=== PATIENT | female | born 1980 | race Caucasian/White ===

== ENCOUNTER 2018-02-04 21:22 | Emergency (ER) | payer OTHER ==
[2018-02-04 21:39] VITALS: BP 111/73
--- NOTE | 2018-02-04 21:48 | UC ---
Eye Complaint HPI - HPI Summary HPI Summary: 37 yo female with right eye redness x 1 week no d/c mild irritation no visual complaints no photophobia - History of Current Complaint Chief Complaint: UCEye Stated Complaint: EYE COMPLAINT Time Seen by Provider: 02/04/18 21:42 Hx Obtained From: Patient Hx Last Menstrual Period: 01/30/18 Onset/Duration: Gradual Onset, Lasting Days Timing: Constant Severity Initially: Mild Severity Currently: Mild Pain Intensity: 0 Pain Scale Used: 0-10 Numeric Aggravating Factor(s): Nothing Alleviating Factor(s): Nothing Associated Signs And Symptoms: Positive: Negative Eyes: 1 - medial redness only - Allergies/Home Medications Allergies/Adverse Reactions: Allergies Allergy/AdvReac Type Severity Reaction Status Date / Time No Known Allergies Allergy Verified 02/04/18 21:39 Home Medications: Home Medications NK [No Home Medications Reported] 02/04/18 [History Confirmed 02/04/18] PMH/Surg Hx/FS Hx/Imm Hx Previously Healthy: Yes - Surgical History Surgical History: None - Family History Known Family History: Positive: Hypertension, Other - stong FH autoimmune problems including LUPUS, RA - Social History Alcohol Use: Occasionally Substance Use Type: None Smoking Status (MU): Never Smoked Tobacco Review of Systems Constitutional: Negative Skin: Negative Eyes: Eye Redness ENT: Negative Respiratory: Negative Cardiovascular: Negative Gastrointestinal: Negative Genitourinary: Negative Motor: Negative Neurovascular: Negative Musculoskeletal: Negative Neurological: Negative Psychological: Negative Is Patient Immunocompromised?: No All Other Systems Reviewed And Are Negative: Yes Physical Exam Triage Information Reviewed: Yes Appearance: Well-Appearing, No Pain Distress, Well-Nourished Vital Signs: Initial Vital Signs Temp 98.0 F 02/04/18 21:36 Pulse 70 02/04/18 21:36 Resp 14 02/04/18 21:36 BP 111/73 02/04/18 21:36 Pulse Ox 100 02/04/18 21:36 Vital Signs Reviewed: Yes Eyes: Positive: Conjunctiva Inflamed - nasal aspect of right eye only, Other: - eomi/perrl/no FB ENT: Positive: Hearing grossly normal. Negative: Nasal congestion, Nasal drainage, Trismus, Muffled voice, Hoarse voice Neck: Positive: Supple Respiratory: Positive: Lungs clear, Normal breath sounds, No respiratory distress Cardiovascular: Positive: RRR, No Murmur Musculoskeletal: Positive: ROM Intact, No Edema Neurological Exam: Normal Neurological: Positive: Alert Psychological Exam: Normal Skin Exam: Normal Eye Complaint Course/Dx - Course Course Of Treatment: advised f/u with specialist - Differential Dx/Diagnosis Provider Diagnoses: red eye of uncertain cause, ? scleritis Discharge - Sign-Out/Discharge Documenting (check all that apply): Discharge/Admit/Transfer - Discharge Plan Condition: Stable Disposition: HOME Patient Education Materials: Conjunctivitis (ED) Referrals: Babatunde Villafana MD [Medical Doctor] - 2 Days (call Tuesday and make an appt) Additional Instructions: I suggest you see an agricultural extension specialist you may have scleritis I suggest you also use ZADITOR eye drops (OTC) in case this is a localized allergic reaction - Billing Disposition and Condition Condition: STABLE Disposition: HOME
[2018-02-04] MEDS ORDERED: Polymyx/Trimethoprim OPTH* 10 ML BTL RIGHT EYE ONE (21:50)
== END 2018-02-04 22:02 | disposition home or self-care (01) ==
LOC: UCEAST 21:22
DX: H57.8 Other specified disorders of eye and adnexa (principal)
CPT/HCPCS: 99202; G0463